=== PATIENT | female | born 1955 | race Caucasian/White ===

== ENCOUNTER 2017-03-29 14:04 | Inpatient (IN) | payer OTHER ==
[~2017-03-29] VITALS: Ht 175.3 cm; Wt 121.1 kg
--- NOTE | ~2017-03-29 | HC ---
[facility] [place] [address] CONSULTATION Name: LEXUSJOSE ANTONIO JOYCE Room #: 418-P ADM IN M.R.#: [id number] Admission: 03/29/17 Attend Phys: Lion Song DO Discharge: Date of : 55 Report #: [id number] THIS REPORT FOR: //name// CC: DESMOND Tubbs REASON FOR CONSULTATION: I was asked to evaluate concerning a right complicated pyelonephritis. HISTORY OF PRESENT ILLNESS: The patient is a 61-year-old admitted on 03/29/2017 with nausea, vomiting, fever and finding right hydronephrosis with a 9 mm calculus impacted in the proximal ureter. She had E. coli identified from the urine and from the nephrostomy tube that was placed. This organism is fully susceptible. She has been treated with Levaquin and has defervesced, overall feels better. Attempts at internalizing her catheter were not possible and she now has a nephrostomy tube in. Plan now is for discharge and outpatient followup for stone extraction at a later date. PAST MEDICAL HISTORY: Diabetes, hypothyroidism, chronic kidney disease, major depressive disorder, sciatica, appendectomy, hypertension, back surgery and tonsillectomy. FAMILY HISTORY: Noncontributory. SOCIAL HISTORY: Smoker of cigarettes. No significant alcohol intake. ALLERGIES: NEOMYCIN. MEDICATIONS: As noted on her MAR including insulin, Cymbalta, Glucotrol, metformin, losartan and hydrochlorothiazide, Synthroid, now Levaquin. REVIEW OF SYSTEMS: No cardiopulmonary or GI complaints. PHYSICAL EXAMINATION: VITAL SIGNS: Afebrile, hemodynamically stable. GENERAL: She is alert and cooperative and pleasant, in no acute distress. HEENT: Unremarkable. SKIN: Unremarkable. LUNGS: Clear. HEART: Regular. ABDOMEN: Soft and nontender. Right flank nephrostomy tube in place. Clear urine in the bag. EXTREMITIES: Unremarkable. LABORATORY STUDIES: Sodium 138, potassium 4.8, bicarbonate 29, creatinine 1.7. Liver function test normal. Hemoglobin 11.4, platelet count 393,000, white [facility] [address] [place] [address] CONSULTATION Name: JOSE ANTONIO ALBERTS Room #: 418-P ADM IN M.R.#: [id number] Admission: 03/29/17 Attend Phys: Lion Song DO Discharge: Date of : 55 Report #: [id number] count 19.4, 75% segs, 17% lymphs. Urinalysis positive for wbc's and bacteria. Right ureter and urine culture E. coli. CT scan of the abdomen and pelvis reviewed. IMPRESSION AND PLAN: A 61-year-old with complicated right pyelonephritis, now day 6 of her treatment with pansensitive Escherichia coli. Recommend amoxicillin to continue until stone extraction. We will adjust the dose to a renal insufficiency. Plan of care was discussed with the patient and nursing staff. Reasonable to discharge any time from my standpoint. <ELECTRONICALLY SIGNED> By: Matt Lancaster MD 04/05/17 1731 1628 0223 Matt Lancaster MD /nt
--- NOTE | ~2017-03-29 | D ---
[facility] [place] [address] DISCHARGE SUMMARY Name: LEXUSJOSE ANTONIO JOYCE Room #: 418-P [facility] IN M.R.#: [id number] Admission: 03/29/17 Attend Phys: Lion Song DO Discharge: 04/05/17 Date of : 55 Report #: [id number] THIS REPORT FOR: //name// CC: EKATERINA physician/PCP DESMOND Song DATE OF SERVICE: 04/05/2017 HISTORY OF PRESENT ILLNESS: The patient is a 61-year-old female who came from primary care doctor's office with back pain and dysuria. The patient was found to have pyelonephritis, as well as right-sided kidney stone. Please refer to admission H and P for details. She was also found to be in renal failure. HOSPITALIZATION COURSE: The patient was hospitalized at [facility]. Urologist was consulted. She was started on antibiotics, and urine cultures were obtained. The patient had ureteral stent placed initially, but her condition did not improve. Later, she underwent nephrostomy by interventional radiologist. Urine cultures grew E. coli. The patient was treated with antibiotics. Infectious disease doctor was consulted. E. coli was sensitive to multiple antibiotics. Since the patient's condition improved, pain has resolved, and clinically she did much better, IV antibiotics were changed to the p.o. The patient will be continued on amoxicillin until kidney stone is removed. As noted, the patient also had acute renal failure when she came in. Creatinine was 3.6 on admission. Currently, creatinine is between 1.6 and 1.7 mostly. Baseline is not known. ARB is currently on hold. The patient's condition at this time is acceptable for her to go home with close outpatient followup with urologist. DISCHARGE DIAGNOSES: 1. Pyelonephritis due to Escherichia coli. Outpatient treatment will be continued with amoxicillin. 2. Large kidney stone, status post ureteral stent placement, as well as urostomy by interventional radiologist. Workup will be continued as an outpatient. The patient will stay on antibiotics until kidney stone is removed. 3. Acute renal failure on suspected chronic kidney disease stage 3. Currently, creatinine is stable at 1.6-1.7, from 3.6 on admission. SECONDARY DIAGNOSES: Includes diabetes mellitus type 2, hypertension, and history of depression. [address] [address] DISCHARGE SUMMARY Name: JOSE ANTONIO ALBERTS Room #: 418-P DIS IN M.R.#: [id number] Admission: 03/29/17 Attend Phys: Lion Song DO Discharge: 04/05/17 Date of : 55 Report #: [id number] DISCHARGE MEDICATIONS: Please refer to the medication reconciliation list. FOLLOWUP PLAN: 1. Follow up with the urologist as advised. 2. Follow up with the primary care physician in 1-2 weeks. I spent greater than 30 minutes to coordinate the patient's discharge from the hospital. <ELECTRONICALLY SIGNED> By: Kyra Combs MD 04/07/17 1454 [id number] 1832 Kyra Combs MD /nt
[2017-03-29 14:08] VITALS: BP 132/54
[2017-03-29 15:41] LABS: URINE BILIRUBIN NEGATIVE (Negative); URINE BLOOD 1+ (Negative); URINE COLOR YELLOW; URINE GLUCOSE-RANDOM* NEGATIVE (Negative); URINE KETONES NEGATIVE (Negative); URINE PROTEIN (DIPSTICK) 1+ (Negative); URINE UROBILINOGEN 0.2 E.U./dl (0.2-1.0)
[2017-03-29 15:47] LABS: HEMATOCRIT 36.4 % (37.0-47.0); HEMOGLOBIN 12.3 gm/dL (12.0-15.0); MCH 29.1 pg (26.0-34.0); MCHC 33.9 g/dL (28.0-37.0); MCV 85.9 fL (80.0-100.0); PLATELET COUNT 242 thou/uL (150-400); RBC 4.24 mil/uL (4.20-5.00); RDW 13.7 % (10.5-14.5); WBC 18.7 thou/uL (4.0-11.0)
[2017-03-29 15:47] LABS: URINE LEUKOCYTES-REFLEX 1+ (Negative)
[2017-03-29 15:48] LABS: MANUAL DIFF YES
[2017-03-29 15:56] LABS: CALCIUM 8.9 mg/dL (8.5-10.1); CREATININE 3.7 mg/dL (0.6-1.0); POTASSIUM 3.8 mmol/L (3.5-5.1)
[2017-03-29 15:57] LABS: COARSE GRANULAR CASTS 4-10 Moderate /LPF (None Seen); SQUAMOUS 0-3 Few /LPF (0-3)
[2017-03-29 15:58] LABS: URINE RBC 0-2 Rare /HPF (0-2); URINE WBC-REFLEX >25 Many /HPF (0-5)
[2017-03-29 15:59] LABS: CRYSTALS None Seen /LPF (None Seen)
[2017-03-29 16:02] LABS: ALBUMIN 2.4 g/dL (3.4-5.0); TOTAL BILIRUBIN 0.7 mg/dL (<0.1-1.0); TOTAL PROTEIN 6.4 g/dL (6.4-8.2)
[2017-03-29 16:09] LABS: ABSOLUTE NEUTROPHILS 15.3 thou/uL (1.4-8.2); TOTAL CELL COUNT 100
[2017-03-29 16:10] LABS: ANISOCYTOSIS SLIGHT; HYPOCHROMASIA SLIGHT
[2017-03-29] MEDS ORDERED: LEVEMIR SUBQ (16:26)
[2017-03-29] MEDS ORDERED: GLIPIZIDE 10 MG10 MG PO (16:27)
[2017-03-29] MEDS ORDERED: CYMBALTA60 MG PO (16:27)
[2017-03-29] MEDS ORDERED: GLUCOPHAGE XR500 MG PO (16:27)
[2017-03-29] MEDS ORDERED: LOSARTAN-HCTZ1 EAC3 PO (16:28)
[2017-03-29] MEDS ORDERED: SYNTHROID100 MCG PO (16:29)
[2017-03-29 18:02] VITALS: BP 132/54
[2017-03-29 20:00] VITALS: BP 198/97
[2017-03-30] VITALS (11 sets, daily range): BP systolic 104–164; BP diastolic 43–93
[2017-03-30 06:35] LABS: CALCIUM 8.6 mg/dL (8.5-10.1); CREATININE 4.1 mg/dL (0.6-1.0); POTASSIUM 3.6 mmol/L (3.5-5.1)
[2017-03-30 07:45] LABS: BASOPHILS 0.6 % (0.0-2.0); EOSINOPHILS 0.7 % (0.0-3.0); HEMATOCRIT 33.7 % (37.0-47.0); HEMOGLOBIN 11.2 gm/dL (12.0-15.0); MCHC 33.3 g/dL (28.0-37.0); MCV 87.1 fL (80.0-100.0); MONOCYTES 11.1 % (1.0-8.0); PLATELET COUNT 215 thou/uL (150-400); POLYS 76.6 % (36.0-66.0); RBC 3.87 mil/uL (4.20-5.00); RDW 13.6 % (10.5-14.5); WBC 16.9 thou/uL (4.0-11.0)
[2017-03-30 07:47] LABS: MANUAL DIFF NO
[2017-03-30 14:41] LABS: APTT 29.6 Seconds (24.5-32.8); PROTIME 10.1 Seconds (9.3-11.4)
[2017-03-31 04:19] VITALS: BP 127/51
[2017-03-31 06:21] LABS: HEMATOCRIT 32.6 % (37.0-47.0); HEMOGLOBIN 10.8 gm/dL (12.0-15.0); MANUAL DIFF YES; MCH 28.8 pg (26.0-34.0); MCV 87.2 fL (80.0-100.0); PLATELET COUNT 224 thou/uL (150-400); RBC 3.74 mil/uL (4.20-5.00); WBC 15.4 thou/uL (4.0-11.0)
[2017-03-31 06:32] LABS: CALCIUM 7.9 mg/dL (8.5-10.1); CREATININE 3.6 mg/dL (0.6-1.0); POTASSIUM 3.7 mmol/L (3.5-5.1)
[2017-03-31 07:30] VITALS: BP 134/58
[2017-03-31 08:41] LABS: ABSOLUTE NEUTROPHILS 11.6 thou/uL (1.4-8.2); PLATELET ESTIMATE NORMAL; TOTAL CELL COUNT 100
[2017-03-31 14:19] VITALS: BP 134/58
[2017-03-31 15:38] VITALS: BP 108/90
[2017-03-31 21:08] VITALS: BP 147/59
[2017-04-01 02:48] VITALS: BP 142/57
[2017-04-01 06:18] LABS: HEMATOCRIT 32.5 % (37.0-47.0); HEMOGLOBIN 10.7 gm/dL (12.0-15.0); MCH 28.5 pg (26.0-34.0); MCV 86.2 fL (80.0-100.0); RBC 3.77 mil/uL (4.20-5.00); RDW 14.3 % (10.5-14.5); WBC 20.2 thou/uL (4.0-11.0)
[2017-04-01 06:35] LABS: ALBUMIN 1.9 g/dL (3.4-5.0); CALCIUM 7.8 mg/dL (8.5-10.1); PHOSPHORUS 2.4 mg/dL (2.5-4.9); POTASSIUM 3.6 mmol/L (3.5-5.1)
[2017-04-01 06:43] LABS: CREATININE 2.4 mg/dL (0.6-1.0)
[2017-04-01 07:23] VITALS: BP 144/59
[2017-04-01 15:48] VITALS: BP 138/80
[2017-04-01 20:01] VITALS: BP 119/39
[2017-04-02 04:45] VITALS: BP 136/54
[2017-04-02 06:24] LABS: HEMATOCRIT 34.6 % (37.0-47.0); HEMOGLOBIN 11.6 gm/dL (12.0-15.0); MCH 28.9 pg (26.0-34.0); MCHC 33.4 g/dL (28.0-37.0); MCV 86.7 fL (80.0-100.0); PLATELET COUNT 342 thou/uL (150-400); RBC 3.99 mil/uL (4.20-5.00); RDW 14.3 % (10.5-14.5); WBC 17.7 thou/uL (4.0-11.0)
[2017-04-02 06:27] LABS: MANUAL DIFF YES
[2017-04-02 06:36] LABS: CALCIUM 8.1 mg/dL (8.5-10.1); CREATININE 1.8 mg/dL (0.6-1.0); PHOSPHORUS 2.8 mg/dL (2.5-4.9); POTASSIUM 3.9 mmol/L (3.5-5.1)
[2017-04-02 07:28] LABS: ABSOLUTE NEUTROPHILS 12.6 thou/uL (1.4-8.2); ANISOCYTOSIS 1+; METAMYELOCYTES 1 %; TOTAL CELL COUNT 100
[2017-04-02 07:29] LABS: HYPOCHROMASIA 1+
[2017-04-02 09:50] VITALS: BP 117/53
[2017-04-02 16:15] VITALS: BP 121/61
[2017-04-02 20:00] VITALS: BP 115/62
[2017-04-03 04:30] VITALS: BP 137/62
[2017-04-03 06:28] LABS: CALCIUM 8.3 mg/dL (8.5-10.1); CREATININE 1.6 mg/dL (0.6-1.0); PHOSPHORUS 2.8 mg/dL (2.5-4.9); POTASSIUM 4.9 mmol/L (3.5-5.1)
[2017-04-03 07:36] VITALS: BP 134/53
[2017-04-03 15:23] VITALS: BP 142/57
[2017-04-03 20:00] VITALS: BP 149/75
[2017-04-04 04:12] VITALS: BP 147/71
[2017-04-04 06:07] LABS: HEMATOCRIT 34.6 % (37.0-47.0); HEMOGLOBIN 11.4 gm/dL (12.0-15.0); MCH 28.2 pg (26.0-34.0); MCHC 32.8 g/dL (28.0-37.0); MCV 85.9 fL (80.0-100.0); PLATELET COUNT 393 thou/uL (150-400); RBC 4.02 mil/uL (4.20-5.00); RDW 13.9 % (10.5-14.5); WBC 19.4 thou/uL (4.0-11.0)
[2017-04-04 06:09] LABS: MANUAL DIFF YES
[2017-04-04 06:20] LABS: CALCIUM 8.4 mg/dL (8.5-10.1); CREATININE 1.7 mg/dL (0.6-1.0); MAGNESIUM 1.6 mg/dL (1.8-2.4); POTASSIUM 4.8 mmol/L (3.5-5.1)
[2017-04-04 07:22] VITALS: BP 146/64
[2017-04-04 08:45] LABS: ABSOLUTE NEUTROPHILS 14.6 thou/uL (1.4-8.2); ANISOCYTOSIS SLIGHT; POLYCHROMASIA OCCASIONAL; TOTAL CELL COUNT 100
[2017-04-04 15:32] VITALS: BP 122/59
[2017-04-04 19:33] VITALS: BP 140/50
[2017-04-05 03:17] VITALS: BP 145/58
[2017-04-05 05:52] LABS: HEMOGLOBIN 11.3 gm/dL (12.0-15.0); MCH 28.2 pg (26.0-34.0); MCHC 32.2 g/dL (28.0-37.0); MCV 87.7 fL (80.0-100.0); PLATELET COUNT 389 thou/uL (150-400); WBC 20.6 thou/uL (4.0-11.0)
[2017-04-05 06:01] LABS: CALCIUM 8.3 mg/dL (8.5-10.1); CREATININE 1.7 mg/dL (0.6-1.0)
[2017-04-05 06:05] LABS: MANUAL DIFF YES
[2017-04-05 07:40] LABS: ABSOLUTE NEUTROPHILS 14.2 thou/uL (1.4-8.2); TOTAL CELL COUNT 100
[2017-04-05 07:43] VITALS: BP 155/63
[2017-04-05 07:45] LABS: ANISOCYTOSIS SLIGHT
[2017-04-05] MEDS ORDERED: NORVASC5 MG PO (10:16)
[2017-04-05] MEDS ORDERED: AMOXICILLIN 50500 M1 PO (10:16)
[2017-04-05 12:10] VITALS: BP 134/58
[2017-04-05 15:30] VITALS: BP 128/57
== END 2017-04-05 17:48 | disposition home health service (06) | DRG 871 ==
LOC: ER 14:04 → 4E 17:21 → EROBS 17:21 → 4E 19:06 → ENTRNSPT 04-05 17:34 → 4E 04-05 17:48
PROVIDERS: Emergency Medicine; Hospitalist; Internal Medicine Endocrinology, Diabetes & Metabolism; Internal Medicine Geriatric Medicine; Nurse Practitioner; Radiology Diagnostic Radiology
PROC: 0T763DZ Dilation of Right Ureter with Intraluminal Device, Percutaneous Approach (ICD-10-PCS; principal; 2017-03-30)
PROC: 0T9030Z Drainage of Right Kidney with Drainage Device, Percutaneous Approach (ICD-10-PCS; principal; 2017-03-30)
DX: A41.9 Sepsis, unspecified organism (principal); E43 Unspecified severe protein-calorie malnutrition; N12 Tubulo-interstitial nephritis, not specified as acute or chronic; N20.2 Calculus of kidney with calculus of ureter; N17.9 Acute kidney failure, unspecified; E11.22 Type 2 diabetes mellitus with diabetic chronic kidney disease; E03.9 Hypothyroidism, unspecified; F32.9 Major depressive disorder, single episode, unspecified; M54.30 Sciatica, unspecified side; F17.210 Nicotine dependence, cigarettes, uncomplicated; I12.9 Hypertensive chronic kidney disease with stage 1 through stage 4 chronic kidney disease, or unspecified chronic kidney disease; N18.3 Chronic kidney disease, stage 3 (moderate); N13.9 Obstructive and reflux uropathy, unspecified; B96.20 Unspecified Escherichia coli [E. coli] as the cause of diseases classified elsewhere; Z79.4 Long term (current) use of insulin; Z88.1 Allergy status to other antibiotic agents; Z90.49 Acquired absence of other specified parts of digestive tract; Z82.49 Family history of ischemic heart disease and other diseases of the circulatory system; Z83.3 Family history of diabetes mellitus; Z68.39 Body mass index [BMI] 39.0-39.9, adult
CPT/HCPCS: 10183

== ENCOUNTER → 2017-04-26 | Outpatient (CLI) | payer OTHER ==
[~2017-04-26] MED LIST: AMOXICILLIN 50500 M1 PO; CYMBALTA60 MG PO; GLIPIZIDE 10 MG10 MG PO; GLUCOPHAGE XR500 MG PO; LEVEMIR SUBQ; LOSARTAN-HCTZ1 EAC3 PO; NORVASC5 MG PO; SYNTHROID100 MCG PO
--- NOTE | ~2017-04-26 | EKG ---
[address] [address] ELECTROCARDIOGRAM REPORT Name: LEXUSJOSE ANTONIO MARIA DEL CARMEN Room #: REG CLI [facility]#: [id number] Admission: 04/26/17 Attend Phys: Jeremiah Lockwood MD Discharge: Date of : 55 Report #: [id number] THIS REPORT FOR: //name// [facility] Test Date: 2017-04-26 Test Time: 12:27:50 Pat Name: JOSE ANTONIO ALBERTS Department: Room: Gender: F [employer] Inspector: Manish MANNING : 1955 Requested By: Jeremiah Lockwood Order Number: [id number] MD: Oswald Bustamante Measurements Intervals [place] Rate: 85 P: 63 MS: 177 QRS: -35 QRSD: 93 T: 57 QT: 355 QTc: 422 Interpretive Statements Sinus rhythm Left axis deviation No previous ECG available for comparison Electronically Signed On 04-26-2017 13:14:40 CDT by Oswald Bustamante [email or web address] <ELECTRONICALLY SIGNED> By: Oswald Bustamante MD 04/26/17 1314 1227 1227 MD EMMA Christianson
[2017-04-26 12:29] LABS: CALCIUM 9.7 mg/dL (8.5-10.1); CREATININE 1.4 mg/dL (0.6-1.0); POTASSIUM 4.2 mmol/L (3.5-5.1)
== END ==
LOC: LABMALL 10:01
PROVIDERS: Anesthesiology
DX: Z01.812 Encounter for preprocedural laboratory examination (principal)